=== PATIENT | male | born 1960 | race Caucasian/White ===

== ENCOUNTER 2018-01-01 10:51 | Emergency (ER) | payer OTHER ==
[~2018-01-01] VITALS: Ht 172.7 cm; Wt 84.0 kg
[2018-01-01 10:53] VITALS: BP 138/95; PULSE 95; RESP 16; TEMP 98.6; O2SAT 98
[2018-01-01 11:15] VITALS: BP 137/82; PULSE 81; RESP 19; O2SAT 97
--- NOTE | 2018-01-01 11:59 | PD ---
HPI Chief Complaint: Headache Time Seen by Provider: 11:48 Travel History International Travel<30 days: No Contact w/Intl Traveler<30days: No Traveled to known affect area: No History of Present Illness HPI 57-year-old male presents to the emergency room for evaluation of right lip drooping that started 5 weeks ago. Patient states he especially noticed it after he shaved. He denies numbness or chilling but states it feels like his lip will move the way that he intends it to. He has had associated mild headaches since then they have come and went. Over the past 2 days his headache has significantly worsened. States he has taken multiple over-the- counter medications including Tylenol, Advil, migraine medication, and aspirin without relief in symptoms. He has no associated photophobia, nausea, or vomiting. He went to his primary care physician this morning who recommended come to the emergency room for evaluation of possible aneurysm. Patient denies any chronic medical conditions. He takes no daily medications. Denies any personal or family history of stroke. PFSH Past Medical History GERD: Yes Past Surgical History Abdominal Surgery: Yes Appendectomy: Yes Social History Alcohol Use: No Tobacco Use: Yes Substance Use: No Allergies-Medications (Allergen,Severity, Reaction): Coded Allergies: No Known Allergies (Unverified , 01/01/18) Reported Meds & Prescriptions Reported Meds & Active Scripts Active Aspirin 81 (Aspirin) 81 Mg Tabdr 81 Mg PO DAILY 30 Days Review of Systems Except as stated in HPI: all other systems reviewed are Neg Physical Exam Narrative GENERAL: Well-nourished, well-developed male in no acute distress. Afebrile. Ambulatory. SKIN: Focused skin assessment warm/dry. HEAD: Normocephalic. EYES: No scleral icterus. No injection or drainage. NECK: Supple, trachea midline. No JVD or lymphadenopathy. CARDIOVASCULAR: Regular rate and rhythm without murmurs, gallops, or rubs. RESPIRATORY: Breath sounds equal bilaterally. No accessory muscle use. NEUROLOGICAL: Awake and alert. Motor and sensory grossly within normal limits. Five out of 5 muscle strength in all muscle groups. Normal speech. No pronator drift in upper lower extremities. Normal heel to esparza test. Normal finger to nose test. Patient has flat nasal labial fold and mild smile asymmetry. NIH stroke scale of 1. Data Data Last Documented VS Vital Signs Date Time Temp Pulse Resp B/P (MAP) Pulse Ox O2 Delivery O2 Flow Rate FiO2 01/01/18 11:15 81 19 137/82 (100) 97 Room Air 01/01/18 10:53 98.6 Orders Orders Complete Blood Count With Diff (01/01/18 11:48) Comprehensive Metabolic Panel (01/01/18 11:48) Prothrombin Time / Inr (Pt) (01/01/18 11:48) Act Partial Throm Time (Ptt) (01/01/18 11:48) Ct Brain W/O Iv Contrast(Rout) (01/01/18 11:48) Ecg Monitoring (01/01/18 11:48) Iv Access Insert/Monitor (01/01/18 11:48) Oximetry (01/01/18 11:48) Blood Glucose (01/01/18 11:48) Sodium Chloride 0.9% Flush (Ns Flush) (01/01/18 12:00) Electrocardiogram (01/01/18 11:48) Cta Brain W Iv Contrast W 3d (01/01/18 11:48) Cta Neck W Iv Contrast W 3d (01/01/18 12:07) Iohexol 350 Inj (Omnipaque 350 Inj) (01/01/18 13:37) Aspirin (Aspirin) (01/01/18 15:45) Ed Discharge Order (01/01/18 16:01) Labs Laboratory Tests Test 01/01/18 11:50 White Blood Count 12.2 TH/MM3 Red Blood Count 5.20 MIL/MM3 Hemoglobin 16.9 GM/DL Hematocrit 48.6 % Mean Corpuscular Volume 93.5 FL Mean Corpuscular Hemoglobin 32.5 PG Mean Corpuscular Hemoglobin Concent 34.7 % Red Cell Distribution Width 13.7 % Platelet Count 242 TH/MM3 Mean Platelet Volume 8.6 FL Neutrophils (%) (Auto) 79.7 % Lymphocytes (%) (Auto) 9.9 % Monocytes (%) (Auto) 10.0 % Eosinophils (%) (Auto) 0.2 % Basophils (%) (Auto) 0.2 % Neutrophils # (Auto) 9.7 TH/MM3 Lymphocytes # (Auto) 1.2 TH/MM3 Monocytes # (Auto) 1.2 TH/MM3 Eosinophils # (Auto) 0.0 TH/MM3 Basophils # (Auto) 0.0 TH/MM3 CBC Comment DIFF FINAL Differential Comment Prothrombin Time 10.4 SEC Prothromb Time International Ratio 1.0 RATIO Activated Partial Thromboplast Time 27.8 SEC Blood Urea Nitrogen 9 MG/DL Creatinine 1.15 MG/DL Random Glucose 91 MG/DL Total Protein 7.9 GM/DL Albumin 4.3 GM/DL Calcium Level 9.0 MG/DL Alkaline Phosphatase 65 U/L Aspartate Amino Transf (AST/SGOT) 20 U/L Alanine Aminotransferase (ALT/SGPT) 24 U/L Total Bilirubin 0.6 MG/DL Sodium Level 139 MEQ/L Potassium Level 4.0 MEQ/L Chloride Level 104 MEQ/L Carbon Dioxide Level 27.2 MEQ/L Anion Gap 8 MEQ/L Estimat Glomerular Filtration Rate 66 ML/MIN MDM Medical Decision Making Medical Screen Exam Complete: Yes Emergency Medical Condition: Yes Medical Record Reviewed: Yes Differential Diagnosis Atypical migraine, stroke, TIA, CVA Narrative Course 57-year-old male presents to the emergency room for evaluation of headache for the past 5 weeks. Patient has had associated right upper lip drooping and slurred speech. Headache has significantly worsened over the past 2 days. He went to his PCP who recommended coming to the ED for evaluation of possible aneurysm. Physical exam reveals motor and sensory grossly within normal limits. Five out of 5 muscle strength in all muscle groups. Normal speech. No pronator drift in upper lower extremities. Normal heel to esparza test. Normal finger to nose test. Patient has flat nasal labial fold and mild smile asymmetry. NIH stroke scale of 1. IV access established and basic labs obtained. The patient placed in cardiac telemetry. CBC and CMP are essentially unremarkable. CT and CTA of the head are negative. Neck CTA shows mild calcified plaque in both carotid bulbs with minimal luminal narrowing. Patient made aware. I spoke to the neurologist on-call, Dr. Gates, who are recommends baby aspirin daily with outpatient neurology follow-up. He was told to follow up with primary care physician on Friday for a referral to see neurology. Discharged with perception for baby aspirin. He understands and agrees to plan. Diagnosis Primary Impression: Atypical migraine Referrals: Primary Care Physician Additional Instructions: Take baby aspirin daily. Follow-up with a neurologist within 1 week. Follow-up with your primary care physician for referral. Return for worsening symptoms. Med/Other Pt SpecificInfo: Prescription(s) given Scripts Aspirin (Aspirin 81) 81 Mg Tabdr 81 MG PO DAILY for 30 Days, #30 TAB 0 Refills Prov: Tricia Hickman MD 01/01/18 Disposition: 01 DISCHARGE HOME Condition: Stable Gerda Edouard Jan 01, 2018 11:59
[2018-01-01] MEDS ORDERED: SODIUM CHLORIDE 0.9% FLUSH 10 ML FLUSH IVF PRN (12:00)
[2018-01-01 12:22] LABS: AUTOMATED NEUTROPHIL # 9.7 TH/MM3 (1.8-7.7); BASOPHIL % 0.2 % (0.0-2.0); EOSINOPHIL % 0.2 % (0.0-4.0); HEMATOCRIT 48.6 % (39.0-51.0); HEMOGLOBIN 16.9 GM/DL (13.0-17.0); LYMPH % 9.9 % (9.0-44.0); LYMPHOCYTE # 1.2 TH/MM3 (1.0-4.8); MEAN CELL VOLUME 93.5 FL (80.0-100.0); MEAN CORPUSCULAR HEMOGLOBIN 32.5 PG (27.0-34.0); MEAN CORPUSCULAR HGB CONC 34.7 % (32.0-36.0); MEAN PLATELET VOLUME 8.6 FL (7.0-11.0); MONOCYTE # 1.2 TH/MM3 (0-0.9); NEUT % 79.7 % (16.0-70.0); PLATELET COUNT 242 TH/MM3 (150-450); RED CELL DISTRIBUTION WIDTH 13.7 % (11.6-17.2); WHITE BLOOD COUNT 12.2 TH/MM3 (4.0-11.0)
[2018-01-01 12:29] LABS: PROTHROMBIN TIME - PATIENT 10.4 SEC (9.8-11.6)
[2018-01-01 12:42] LABS: ALBUMIN 4.3 GM/DL (3.4-5.0); ALT (GPT) 24 U/L (12-78); AST (GOT) 20 U/L (15-37); BICARBONATE 27.2 MEQ/L (21.0-32.0); BLOOD UREA NITROGEN 9 MG/DL (7-18); CHLORIDE 104 MEQ/L (98-107); CREATININE 1.15 MG/DL (0.60-1.30); GLOMERULAR FILTRATION RATE 66 ML/MIN (>89); GLUCOSE,RANDOM 91 MG/DL (74-106); SODIUM (NA) 139 MEQ/L (136-145)
[2018-01-01 12:45] LABS: ALKALINE PHOSPHATASE 65 U/L (45-117); TOTAL BILIRUBIN ADULT 0.6 MG/DL (0.2-1.0); TOTAL PROTEIN 7.9 GM/DL (6.4-8.2)
[2018-01-01] MEDS ORDERED: IOHEXOL 350 MG/ML 10 ML VIAL (for RAD DIAG) IVCONTRAST ONE (13:37)
--- NOTE | 2018-01-01 15:13 | RADRPT ---
EXAM DATE/TIME: 01/01/2018 13:24 [facility] COMPARISON: No previous studies available for comparison. INDICATIONS : Headache for 3 weeks RADIATION DOSE: 34.80 CTDIvol (mGy) MEDICAL HISTORY : None SURGICAL HISTORY : Appendectomy. ENCOUNTER: Initial ACUITY: 3 weeks PAIN SCALE: 8/10 LOCATION: facial TECHNIQUE: Multiple contiguous axial images were obtained of the head. Using automated exposure control and adj ustment of the mA and/or kV according to patient size, radiation dose was kept as low as reasonably a chievable to obtain optimal diagnostic quality images. DICOM format image data is available electro nically for review and comparison. FINDINGS: CEREBRUM: The ventricles are normal for age. No evidence of midline shift, mass lesion, hemorrhage or acute in farction. No extra-axial fluid collections are seen. POSTERIOR FOSSA: The cerebellum and brainstem are intact. The 4th ventricle is midline. The cerebellopontine angle i s unremarkable. EXTRACRANIAL: The visualized portion of the orbits is intact. Complete opacification of the left sphenoid sinus. No bony expansion or destruction. Mild mucosal thickening involving the right sphenoid sinus. Mastoid a ir cells are clear. SKULL: The calvaria is intact. No evidence of skull fracture. CONCLUSION: 1. No acute intracranial abnormality. 2. Sphenoid sinus disease. Hima Vaz Jr., MD on January 01, 2018 at 15:08 Board Certified Radiologist. This report was verified electronically.
--- NOTE | 2018-01-01 15:21 | RADRPT ---
EXAM DATE/TIME: 01/01/2018 13:24 [facility] COMPARISON: No previous studies available for comparison. INDICATIONS : Headache for 3 weeks IV CONTRAST: 70 cc Omnipaque 350 (iohexol) IV ; Cumulative dose for multiple exams. RADIATION DOSE: 28.31 CTDIvol (mGy) ; Combined studies MEDICAL HISTORY : None SURGICAL HISTORY : Appendectomy. ENCOUNTER: Initial ACUITY: 3 weeks PAIN SCALE: 8/10 LOCATION: cranial Elevated flow velocities and ICA/CCA ratios have been found to correlate with increased degrees of vessel stenosis, calculated as percentage of diameter relative to a normal segment of distal ICA/CCA. TECHNIQUE: Volumetric scanning was performed using a multirow detector CT scanner. The data was post processed with a variety of visualization algorithms including full-volume maximum intensity projection, multip lanar sliding thin-slab reformation, curved-planar reformation, and surface-rendering techniques. Us ing automated exposure control and adjustment of the mA and/or kV according to patient size, radiatio n dose was kept as low as reasonably achievable to obtain optimal diagnostic quality images. DICOM f ormat image data is available electronically for review and comparison. FINDINGS: AORTIC ARCH: There is a three-vessel origin of the great vessels from the aorta. No evidence of ostial narrowing. RIGHT CAROTID: The common carotid artery is intact. The carotid bulb has a normal configuration with mild peripheral calcific plaque and no significant stenosis. The internal carotid artery lumen is smooth without wu nosis. The external carotid artery is intact. LEFT CAROTID: The common carotid artery is intact. The carotid bulb has a normal configuration with mild periphera l calcific plaque and no significant stenosis. The internal carotid artery lumen is smooth without st enosis. The external carotid artery is intact. VERTEBRALS: The vertebral arteries have a symmetric diameter. No stenotic lesions are seen. CONCLUSION: Mild calcified plaque in both carotid bulbs with minimal luminal narrowing. Aravind Graham MD on January 01, 2018 at 15:15 Board Certified Radiologist. This report was verified electronically.
--- NOTE | 2018-01-01 15:33 | RADRPT ---
EXAM DATE/TIME: 01/01/2018 13:24 [facility] COMPARISON: No previous studies available for comparison. INDICATIONS : Headache for 3 weeks IV CONTRAST: 70 cc Omnipaque 350 (iohexol) IV ; Cumulative dose for multiple exams. RADIATION DOSE: 28.51 CTDIvol (mGy) ; Combined studies MEDICAL HISTORY : None SURGICAL HISTORY : Appendectomy. ENCOUNTER: Initial ACUITY: 3 weeks PAIN SCALE: 8/10 LOCATION: cranial TECHNIQUE: Volumetric scanning was performed using a multi-row detector CT scanner. The data was post processed with a variety of visualization algorithms including full volume maximum intensity projection, multi -planar sliding thin slab reformation, curved planar reformation, and surface rendering techniques. Using automated exposure control and adjustment of the mA and/or kV according to patient size, radiat ion dose was kept as low as reasonably achievable to obtain optimal diagnostic quality images. DICO M format image data is available electronically for review and comparison. FINDINGS: There is excellent visualization of the major intracranial arteries out to the second-order branch ve ssels. There is very anatomy with persistent circulation on the right. There is no evidence fo r aneurysm, vessel truncation or stenosis, and no evidence for vascular malformation. CONCLUSION: Unremarkable exam. Hima Vaz Jr., MD on January 01, 2018 at 15:15 Board Certified Radiologist. This report was verified electronically.
[2018-01-01] MEDS ORDERED: ASPIRIN 325 MG TAB PO ONE (15:45)
[2018-01-01] MEDS ORDERED: ASPI1TAB57 PO (15:58)
[2018-01-01 16:23] VITALS: BP 134/77; PULSE 74; RESP 17; O2SAT 97
--- NOTE | 2018-01-02 19:04 | EKG ---
Date Performed: 01/01/2018 Time Performed: 13:39:59 PTAGE: 57 years EKG: Sinus rhythm NORMAL ECG NO PREVIOUS TRACING DOCTOR: Roger Stewart Interpretating Date/Time 01/02/2018 19:03:03
== END 2018-01-01 16:23 | disposition home or self-care (01) ==
LOC: NEPE 10:51 → EDBD 10:51 → NEPE 16:23
DX: G43.009 Migraine without aura, not intractable, without status migrainosus (principal); K21.9 Gastro-esophageal reflux disease without esophagitis; Z79.82 Long term (current) use of aspirin; Z72.0 Tobacco use
CPT/HCPCS: 70450; 70496; 70498; 80053; 85025; 85610; 85730; 93005; 99285; Q9967